=== PATIENT | female | born 1960 | race Two or more races ===

== ENCOUNTER 2023-04-09 04:49 | Day surgery (SDC) | payer OTHER ==
[2023-02-28 10:17] VITALS: BMI 20.9
[2023-04-09 11:09] VITALS: TEMP 97
[2023-04-09 11:42] VITALS: BP 110/76; PULSE 73; RESP 15
== END 2023-04-09 11:40 | disposition home or self-care (01) ==
LOC: JASU-ENDO 04:49
PROVIDERS: ATTEND Internal Medicine Gastroenterology
PROC: 0DJD8ZZ Inspection of Lower Intestinal Tract, Via Natural or Artificial Opening Endoscopic (ICD-10-PCS; principal; 2023-04-09 11:00)
DX: Z12.11 Encounter for screening for malignant neoplasm of colon (principal)